=== PATIENT | male | born 1965 | race Caucasian/White ===

== ENCOUNTER 2023-05-05 07:37 | Day surgery (SDC) | payer BC ==
[2023-04-28 14:57] LABS: BILIRUBIN,URINE NEGATIVE (Neg); CLARITY,URINE CLEAR (Clear); COLOR,URINE YELLOW (Yellow); GLUCOSE, URINE NEGATIVE (Neg); KETONES,URINE NEGATIVE (Neg); LEUKOCYTE ESTERASE ,URINE NEGATIVE (Neg); NITRITES, URINE NEGATIVE (Neg); OCCULT BLOOD,URINE NEGATIVE (Neg); PROTEIN,URINE NEGATIVE (Neg); UROBILINOGEN,URINE 0.2 E.U/dL (0.2-1.0)
[2023-04-28 15:13] LABS: BASOPHILS # (AUTO) 0.1 X10'3 (0-0.2); BASOPHILS % (AUTO) 0.8 % (0-1); EOSINOPHILS # (AUTO) 0.2 X10'3 (0-0.9); EOSINOPHILS % (AUTO) 2.4 % (0-6); LYMPHOCYTES # (AUTO) 2.2 X10'3 (1.1-4.8); MEAN CORPUSCULAR HEMOGLOBIN 27.4 PG (27.0-31.0); MEAN CORPUSCULAR HGB CONC 33.1 g/dL (33.0-36.5); MEAN CORPUSCULAR VOLUME 82.8 FL (78-98); MEAN PLATELET VOLUME 8.3 FL (7.4-10.4); MONOCYTES # (AUTO) 0.8 X10'3 (0-0.9); MONOCYTES % (AUTO) 9.1 % (2-12); NEUTROPHILS # (AUTO) 5.5 X10'3 (1.8-7.7); NEUTROPHILS % (AUTO) 62.7 % (42-75); PRE OP HEMATOCRIT 42.7 % (42.0-52.0); PRE OP HEMOGLOBIN 14.1 g/dL (14.0-17.9); PRE OP PLATELET COUNT 211 X10'3 (140-440); PRE OP WHITE BLOOD COUNT 8.8 10'3 (4.8-10.8); RED BLOOD COUNT 5.16 X10'6 (4.70-6.10); RED CELL DISTRIBUTION WIDTH 14.7 % (11.5-14.5)
[2023-04-28 15:14] LABS: UA COLLECTION TYPE CLN CATCH MIDSTREAM
[2023-04-28 15:22] LABS: ALBUMIN 3.4 G/DL (3.4-5.0); ALBUMIN/GLOBULIN RATIO 0.9 (1.1-1.5); ALKALINE PHOSPHATASE 80 IU/L (46-116); BLOOD UREA NITROGEN 16 MG/DL (7-18); BUN/CREATININE RATIO 19.8 (10.0-20.0); CALCIUM 8.5 MG/DL (8.5-10.1); CHLORIDE 104 MMOL/L (99-107); CREATININE 0.81 MG/DL (0.60-1.10); PRE OP ALT 37 U/L (30-65); PRE OP ANION GAP 8 (8-16); PRE OP AST 17 U/L (10-37); PRE OP BILIRUB, TOTAL 0.6 MG/DL (0.0-1.0); PRE OP GLUCOSE 79 MG/DL (70-104); PRE OP POTASSIUM 3.7 MMOL/L (3.4-5.1); PRE OP SODIUM 138 MMOL/L (135-145); TOTAL CARBON DIOXIDE 25.9 MMOL/L (24-32); TOTAL PROTEIN 7.4 G/DL (6.4-8.2); eGFR > 90 ML/MIN
[~2023-05-05] VITALS: Ht 182.9 cm; Wt 141.1 kg
[2023-05-05] VITALS (14 sets, daily range): BP systolic 119–154; BP diastolic 52–85; PULSE 60–71; RESP 15–18; TEMP 97.2; O2SAT 62–99
[~2023-05-05 07:37] MED LIST: NO HOME MEDS
[2023-05-05] MEDS ORDERED: midazolam 1 mg/ML 2ml injection IV ONE (07:38)
[2023-05-05] MEDS: cefazolin 2gm/D5W 100mL 100 ML IV ONE (07:55)
[2023-05-05] MEDS: famotidine 20mg tablet PO ONE (07:57)
[2023-05-05] MEDS: ringers solution, lacted 1,000 ML IV SCH (07:57)
[2023-05-05] MEDS ORDERED: BUPIVAcaine/PF 2.5mg/ml (0.25%) 10ml vial ONE (09:37)
[2023-05-05] MEDS ORDERED: fentaNYL/PF 50MCG/1 ML 2ML syringe IV ONE (10:25)
[2023-05-05] MEDS ORDERED: labetalol 20mg/4ml (5mg/ml) syringe IV PRN (10:35)
[2023-05-05] MEDS ORDERED: fentaNYL/PF 50MCG/1 ML 2ML syringe IV PRN (10:35)
[2023-05-05] MEDS ORDERED: ringers solution, lacted 1,000 ML IV SCH (10:35)
[2023-05-05] MEDS ORDERED: ondansetron/PF 4mg/2ml inj IV PRN (10:35)
[2023-05-05] MEDS ORDERED: morphine 2 MG/ML inj. syringe IV PRN (10:35)
[2023-05-05] MEDS ORDERED: hydrALAZINE 20mg/ml inj. IV PRN (10:35)
[2023-05-05] MEDS ORDERED: sugammadex 200mg/2ml injection IV ONE (12:04)
[2023-05-05] MEDS ORDERED: ondansetron/PF 4mg/2ml inj ONE (12:04)
[2023-05-05] MEDS ORDERED: acetaminophen 1000 MG/100ml vial IV ONE (12:04)
[2023-05-05] MEDS ORDERED: sevoflurane 250ml liquid IH ONE (12:04)
[2023-05-05] MEDS ORDERED: dexamethasone sod phosphate 10mg/ml inj ONE (12:04)
[2023-05-05] MEDS ORDERED: rocuronium 10mg/ml inj IV ONE (12:04)
[2023-05-05] MEDS ORDERED: LIDOcaine 2% (20mg/ml) 5ml vial ONE (12:04)
[2023-05-05] MEDS ORDERED: hydrALAZINE 20mg/ml inj. IV ONE (12:04)
[2023-05-05] MEDS ORDERED: propofol 10mg/ml 20ml vial IV ONE (12:04)
[2023-05-05] MEDS ORDERED: labetalol 20mg/4ml (5mg/ml) syringe IV ONE (12:04)
[2023-05-05] MEDS: BUPIVAcaine/PF 2.5mg/ml (0.25%) 10ml vial IJ ONE (12:44)
[2023-05-05] MEDS: morphine 4 MG/ML inj SYRINge IV PRN (13:28)
[2023-05-05] MEDS: HYDROcodone/acetaminophen 10/325mg tab PO ONE (13:40)
[2023-05-05] MEDS: fentaNYL/PF 50MCG/1 ML 2ML syringe IV PRN (14:01)
[2023-05-05] MEDS: ketorolac trometh. 30mg/ml inj. IM ONE (14:22)
== END 2023-05-05 15:15 | disposition home or self-care (01) ==
LOC: PAS 07:37
PROVIDERS: ATTEND Surgery
DX: K43.9 Ventral hernia without obstruction or gangrene (principal); E78.5 Hyperlipidemia, unspecified; I10 Essential (primary) hypertension; G47.30 Sleep apnea, unspecified; G89.29 Other chronic pain; E66.01 Morbid (severe) obesity due to excess calories; Z68.41 Body mass index [BMI] 40.0-44.9, adult; Z72.89 Other problems related to lifestyle; Z79.899 Other long term (current) drug therapy
CPT/HCPCS: 36415; 49593; 80053; 81003; 82948; 85025; 93005; C1781; J0131; J0360; J0690; J1100; J1885; J2250; J2270; J2405; J2704; J3010; J3490; J7030; J7120; Z7506; Z7508; Z7512; A4615; A4618; A7000